=== PATIENT | male | born 1990 | race Caucasian/White ===

== ENCOUNTER 2019-08-21 11:45 | Emergency (ER) | payer SELFPAY ==
[~2019-08-21] VITALS: Ht 175.3 cm; Wt 68.4 kg
[2019-08-21 11:48] VITALS: BP 161/84
--- NOTE | 2019-08-21 11:59 | NUR ---
FIRST CONTACT WITH PT. PT C/O BILAT EYE BLURRY VISION, THICK CLEAR DISCHARGE, SENSETIVE TO LIGHT X7 DAYS. PT'S AOX4. RESPS EVEN AND UNLABORED. VISUAL ACUITY DONE.
[2019-08-21] MEDS ORDERED: FLUORESCEIN OPHTHALMIC 1 MG STRIP ONE (12:10)
[2019-08-21] MEDS ORDERED: PROPARACAINE OPHTH 0.5%, 15ML ONE (12:10)
--- NOTE | 2019-08-21 12:50 | NUR ---
Patient given discharge instructions and they have confirmed that they understand the instructions. Patient ambulatory with steady gait.
== END 2019-08-21 12:51 | disposition home or self-care (01) ==
LOC: ED 12:45
DX: H10.233 Serous conjunctivitis, except viral, bilateral (principal)
CPT/HCPCS: 99283